=== PATIENT | male | born 1945 | race African-American/Black ===

== ENCOUNTER 2017-03-08 21:34 | Inpatient (IN) | payer MEDICARE, OTHER ==
[~2017-03-08] VITALS: Ht 180.3 cm; Wt 61.7 kg
[~2017-03-08 21:34] MED LIST: ASPIRIN81 MG ORAL; BACITRACIN ZIN1 EACH TOPIC; KEFLEX500 MG ORAL; SYMBICORT 80-10.2 G1 IH
[2017-03-08] MEDS ORDERED: Nitroglycerin Subl 0.4mg tab (Bottle Of 25) SL ONE (21:36)
[2017-03-08] MEDS ORDERED: Albuterol ud Inhalation HHN ONE (21:45)
[2017-03-08] MEDS ORDERED: Ipratropium 0.02% Inh Soln 2.5ml UD HHN ONE (21:45)
[2017-03-08] MEDS: Nitroglycerin Subl 0.4mg tab (Bottle Of 25) SL PRN ×2 (21:54→22:00)
[2017-03-08 21:55] VITALS: BP 209/108
[2017-03-08 22:00] VITALS: BP 108/56
[2017-03-08 22:30] VITALS: BP 92/52
[2017-03-08 22:56] LABS: BASOPHILS % (AUTO) 0.8 % (0.0-2.0); EOSINOPHILS % (AUTO) 1.2 % (0.0-3.0); LYMPHOCYTES % (AUTO) 48.5 % (20.0-45.0); MEAN CORPUSCULAR HEMOGLOBIN 39.6 PG (27.0-31.0); MEAN CORPUSCULAR HGB CONC 36.4 G/DL (32.0-36.0); MEAN CORPUSCULAR VOLUME 109 FL (80-99); MONOCYTES % (AUTO) 6.5 % (1.0-10.0); NEUTROPHILS % (AUTO) 42.9 % (45.0-75.0); PLATELET COUNT 142 K/UL (150-450); RED BLOOD COUNT 3.45 M/UL (4.70-6.10); RED CELL DISTRIBUTION WIDTH 11.4 % (11.6-14.8)
[2017-03-08 23:02] LABS: TROPONIN I < 0.30 ng/mL (<=0.30)
[2017-03-08 23:03] LABS: ALANINE AMINOTRANSFERASE 44 U/L (3-41); ALBUMIN/GLOBULIN RATIO 1.3 (1.0-2.7); ANION GAP 22 (5-15); ASPARTATE AMINO TRANSFERASE 110 U/L (5-40); CALCIUM 8.6 mg/dL (8.6-10.2); CARBON DIOXIDE 19 mEQ/L (20-30); CHLORIDE 102 mEQ/L (98-107); CREATININE 1.6 mg/dL (0.7-1.2); HEMOLYSIS 52; POTASSIUM 4.2 mEQ/L (3.4-4.9); SODIUM 143 mEQ/L (135-145); TOTAL PROTEIN 7.4 g/dL (6.6-8.7)
[2017-03-08 23:09] LABS: REFLEX LACTIC ACID YES OR NO YES
[2017-03-08 23:30] VITALS: BP 142/73
[2017-03-08] MEDS ORDERED: Morphine Sulfate 2mg/ml Inj IVP PRN (23:45)
[2017-03-08] MEDS ORDERED: Promethazine/Codeine 5ml UD ORAL PRN (23:45)
[2017-03-08] MEDS ORDERED: Ketorolac 30mg Inj IV PRN (23:45)
[2017-03-08] MEDS ORDERED: LORazepam Inj 2mg/ml 1ml IV PRN (23:45)
[2017-03-08] MEDS ORDERED: Nitroglycerin Subl 0.4mg tab (Bottle Of 25) SL PRN (23:45)
[2017-03-08] MEDS ORDERED: DuoNeb 0.5-3(2.5)mg/3ml neb HHN PRN (23:45)
[2017-03-09] VITALS (13 sets, daily range): BP systolic 127–171; BP diastolic 63–93
[2017-03-09] MEDS: Solu-MEDROL 125mg Inj IV SCH ×4 (00:20→17:28)
[2017-03-09] MEDS ORDERED: vit d2 PO (00:29)
[2017-03-09] MEDS ORDERED: NORVASC5 MG ORAL (00:29)
[2017-03-09 02:35] LABS: APPEARANCE,URINE CLEAR; KETONES,URINE NEGATIVE (NEGATIVE); LEUKOCYTE ESTERASE ,URINE NEGATIVE (NEGATIVE); NITRITE,URINE NEGATIVE (NEGATIVE); PH,URINE 5 (4.5-8.0); PROTEIN,URINE 3+ (NEGATIVE); UROBILINOGEN,URINE NORMAL MG/DL (0.0-1.0)
[2017-03-09] MEDS ORDERED: Unasyn 3gm Inj ONE (02:43)
[2017-03-09] MEDS ORDERED: Ampicillin/Sulbactam Sod 3 GM in NS 110 ML IVPB SCH (02:45)
[2017-03-09 02:48] LABS: CALCIUM OXALATE CRYSTALS,UR FEW /LPF; HYALINE CASTS, URINE 0-2 /LPF; SQUAMOUS EPITHELIAL CELL,UR FEW /LPF (NONE/OCC); WBC,URINE 0 /HPF (0 - 0)
[2017-03-09 05:56] LABS: MEAN CORPUSCULAR HEMOGLOBIN 35.9 PG (27.0-31.0); MEAN CORPUSCULAR HGB CONC 33.7 G/DL (32.0-36.0); MEAN CORPUSCULAR VOLUME 107 FL (80-99); MEAN PLATELET VOLUME 7.4 FL (6.5-10.1); PLATELET COUNT 130 K/UL (150-450); RED BLOOD COUNT 3.58 M/UL (4.70-6.10); RED CELL DISTRIBUTION WIDTH 11.3 % (11.6-14.8); WHITE BLOOD COUNT 8.4 K/UL (4.8-10.8)
[2017-03-09] MEDS ORDERED: Piperacillin/Tazobactam 2.25 GM in D5W 55 ML IV SCH (06:00)
[2017-03-09 06:08] LABS: ALANINE AMINOTRANSFERASE 39 U/L (3-41); ALBUMIN/GLOBULIN RATIO 1.4 (1.0-2.7); ANION GAP 20 (5-15); ASPARTATE AMINO TRANSFERASE 70 U/L (5-40); CARBON DIOXIDE 20 mEQ/L (20-30); CHLORIDE 102 mEQ/L (98-107); CREATININE 1.7 mg/dL (0.7-1.2); HEMOLYSIS 4; MAGNESIUM 1.4 mg/dL (1.7-2.5); PHOSPHORUS 2.8 mg/dL (2.5-4.8); POTASSIUM 3.8 mEQ/L (3.4-4.9); SODIUM 142 mEQ/L (135-145); TOTAL PROTEIN 7.2 g/dL (6.6-8.7)
--- NOTE | 2017-03-09 06:56 | Emergency Room Report ---
History of Present Illness General Chief Complaint: Dyspnea/Respdistress Source: Patient, EMS Present Illness HPI The patient is 71-year-old male who presented after having increased difficulty breathing. Patient gradual onset of symptoms. The patient had prior history of asthma. He was noted to have severe difficulty breathing by EMS. Patient was noted to be markedly diaphoretic. He was given breathing treatments prior to arrival. He was noted be markedly hypertensive with systolic blood pressure greater than 200. Patient had history of hypertension for which was taking Norvasc.He had prior pacemaker placement. Allergies: Coded Allergies: No Known Allergies (Unverified , 08/25/16) Patient History Past Medical History: see triage record, HTN, asthma Reviewed Nursing Documentation: PMH: Agreed, PSxH: Agreed Nursing Documentation-PMH Hx Hypertension: Yes Hx Pacemaker: Yes Hx Asthma: Yes Physical Exam Vital Signs Date Time Temp Pulse Resp B/P Pulse Ox O2 Delivery O2 Flow Rate FiO2 03/08/17 21:41 98.8 119 28 209/108 100 T-piece 03/08/17 21:50 50 03/09/17 04:00 3.0 Sp02 EP Interpretation: reviewed, normal General Appearance: severe distress, thin Head: atraumatic ENT: normal ENT inspection, normal voice Neck: normal inspection, full range of motion, supple, no bony tend Respiratory: normal inspection, no respiratory distress, no retraction, wheezing Cardiovascular #1: no edema, tachycardia Gastrointestinal: normal inspection, normal bowel sounds, non tender, soft, no guarding, no hernia Genitourinary: no CVA tenderness Musculoskeletal: normal inspection, back normal, normal range of motion Neurologic: normal inspection, alert, oriented x3, responsive, 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 Total critical care time excluding procedures approximately 45 minutes. Medical Decision Making Diagnostic Impression: Primary Impression: Respiratory distress Additional Impressions: Uncontrolled hypertension Pacemaker COPD exacerbation ER Course A presented for shortness of breath. Differential included but was not limited to anemia, pneumonia, pneumothorax, myocardial infarction, pericardial effusion , congestive heart failure, acidosis. Because of complexity of patient's case laboratory testing and imaging studies were ordered. Patient started on BiPAP. He is noted markedly hypertensive and was given antihypertensive medications intravenously. Labs Test 03/08/17 21:50 03/09/17 01:30 03/09/17 04:55 Lactic Acid Level 3.00 mmol/L (0.66-2.22) Total Creatine Kinase 193 U/L (38-174) Creatine Kinase MB 3.0 ng/mL (< 6.7) Creatine Kinase MB Relative Index 1.5 Troponin I < 0.30 ng/mL (<=0.30) Pro-B-Type Natriuretic Peptide 698 pg/mL (0-125) Urine Color Pale yellow Urine Appearance Clear Urine pH 5 (4.5-8.0) Urine Specific Dennis 1.020 (1.005-1.035) Urine Protein 3+ (NEGATIVE) Urine Glucose (UA) Negative (NEGATIVE) Urine Ketones Negative (NEGATIVE) Urine Occult Blood 3+ (NEGATIVE) Urine Nitrite Negative (NEGATIVE) Urine Bilirubin Negative (NEGATIVE) Urine Urobilinogen Normal MG/DL (0.0-1.0) Urine Leukocyte Esterase Negative (NEGATIVE) Urine RBC 5-10 /HPF (0 - 0) Urine WBC 0 /HPF (0 - 0) Urine Squamous Epithelial Cells Few /LPF (NONE/OCC) Urine Calcium Oxalate Crystals Few /LPF (NONE) Urine Bacteria None /HPF (NONE) Urine Hyaline Casts 0-2 /LPF (NONE) Urine Opiates Screen Negative (NEGATIVE) Urine Barbiturates Screen Negative (NEGATIVE) Phencyclidine (PCP) Screen Negative (NEGATIVE) Urine Amphetamines Screen Negative (NEGATIVE) Urine Benzodiazepines Screen Negative (NEGATIVE) Urine Cocaine Screen Negative (NEGATIVE) Urine Marijuana (THC) Screen Negative (NEGATIVE) White Blood Count 8.4 K/UL (4.8-10.8) Red Blood Count 3.58 M/UL (4.70-6.10) Hemoglobin 12.9 G/DL (14.2-18.0) Hematocrit 38.2 % (42.0-52.0) Mean Corpuscular Volume 107 FL (80-99) Mean Corpuscular Hemoglobin 35.9 PG (27.0-31.0) Mean Corpuscular Hemoglobin Concent 33.7 G/DL (32.0-36.0) Red Cell Distribution Width 11.3 % (11.6-14.8) Platelet Count 130 K/UL (150-450) Mean Platelet Volume 7.4 FL (6.5-10.1) Neutrophils (%) (Auto) % (45.0-75.0) Lymphocytes (%) (Auto) % (20.0-45.0) Monocytes (%) (Auto) % (1.0-10.0) Eosinophils (%) (Auto) % (0.0-3.0) Basophils (%) (Auto) % (0.0-2.0) Sodium Level 142 mEQ/L (135-145) Potassium Level 3.8 mEQ/L (3.4-4.9) Chloride Level 102 mEQ/L (98-107) Carbon Dioxide Level 20 mEQ/L (20-30) Anion Gap 20 (5-15) Blood Urea Nitrogen 14 mg/dL (7-23) Creatinine 1.7 mg/dL (0.7-1.2) Estimat Glomerular Filtration Rate mL/min (>60) Glucose Level 186 mg/dL (74-106) Calcium Level 9.0 mg/dL (8.6-10.2) Phosphorus Level 2.8 mg/dL (2.5-4.8) Magnesium Level 1.4 mg/dL (1.7-2.5) Total Bilirubin 0.9 mg/dL (0.0-1.2) Aspartate Amino Transf (AST/SGOT) 70 U/L (5-40) Alanine Aminotransferase (ALT/SGPT) 39 U/L (3-41) Alkaline Phosphatase 65 U/L (40-129) Total Protein 7.2 g/dL (6.6-8.7) Albumin 4.2 g/dL (3.5-5.2) Globulin 3.0 g/dL Albumin/Globulin Ratio 1.4 (1.0-2.7) Chest X-Ray Diagnostic Results EP Interpretation: Yes Findings: no effusion, no pneumothorax Number of Views: 1 Last Vital Signs Date Time Temp Pulse Resp B/P Pulse Ox O2 Delivery O2 Flow Rate FiO2 03/09/17 06:30 96 23 156/91 100 Nasal Cannula 3.0 03/09/17 04:30 98.4 03/09/17 03:30 50 Status: unchanged Disposition: ADMITTED INPATIENT Condition: Serious Referrals: NON PHYSICIAN (PCP) Rosendo España Mar 09, 2017 06:56
--- NOTE | 2017-03-09 10:25 | History and Physical ---
History of Present Illness General Date patient seen: Mar 09, 2017 Time patient seen: 09:30 Reason for Hospitalization: Dyspnea/Respdistress Present Illness HPI 71-year-old male with PMH of asthma/COPD, HTN, pacemaker ( placed for heart block), presented after having increased difficulty breathing with gradual onset of symptoms. The patient had prior history of asthma. Compliant with inhalers at home ( Symbicort) No recent asthma exacerbation He was noted to have severe difficulty breathing by EMS. Patient also was noted to be markedly diaphoretic. He was given breathing treatments prior to arrival. He was noted be markedly hypertensive with systolic blood pressure greater than 200. Patient had history of hypertension for which he was taking Norvasc. 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 workup in ED revealed no leucocytosis, stable HH troponin negative, ECG no ischemic changes pro BNP -698 urine tox screen negative elevated lactic acid UA negative CXR no PNT, no effusion, elevated LFT Mg-1.4 BUN- 14 and creat -1.7 patient was placed on BiPAP anti HTN administered and patient was transferred to [facility] for further management Allergies: Coded Allergies: No Known Allergies (Unverified , 08/25/16) Medication History Scheduled Amlodipine Besylate (Norvasc), 5 MG ORAL TWICE A DAY, (Reported) Aspirin* (Aspirin*), 81 MG ORAL DAILY, (Reported) Bacitracin Zinc* (Bacitracin Zinc*), 1 APPLIC TOPIC THREE TIMES A DAY Budesonide/Formoterol Fumarate (Symbicort 80-4.5 Mcg Inhaler), 2 PUFF IH BID, ( Reported) Cephalexin* (Keflex*), 500 MG ORAL Q6H [vit d2], 50,000 UNIT PO QWEEK, (Reported) Patient History History Provided By: Patient Healthcare decision maker Resuscitation status Advanced Directive on File Review of Systems Constitutional: Reports: weakness - and diaphoresis prior to coming to ED Eye: Reports: other - glasses ENT: Reports: no symptoms Respiratory: Reports: see HPI Cardiovascular: Reports: other - hx of pacemaker 2 to heart block Gastrointestinal: Reports: no symptoms Genitourinary: Reports: no symptoms Musculoskeletal: Reports: no symptoms Skin: Reports: no symptoms Psychiatric: Reports: no symptoms Neurological: Reports: no symptoms Endocrine: Reports: no symptoms Hematologic/Lymphatic: Reports: no symptoms Physical Exam General Appearance: no apparent distress, alert, thin - AA male in NAD A/A/O x 4 Lines, tubes and drains: peripheral HEENT: normocephalic, atraumatic, anicteric, mucous membranes moist Neck: non-tender, supple Respiratory/Chest: no respiratory distress, no accessory muscle use, decreased breath sounds Cardiovascular/Chest: normal rate, regular rhythm Abdomen: normal bowel sounds, non tender, soft Extremities: normal range of motion, non-tender, no calf tenderness, normal capillary refill Neurologic: house designer II-XII grossly normal, no motor/sensory deficits, alert, oriented x 3, responsive, normal mood/affect Musculoskeletal: normal muscle bulk Last 24 Hour Vital Signs Date Time Temp Pulse Resp B/P Pulse Ox O2 Delivery O2 Flow Rate FiO2 03/09/17 09:30 98.4 96 17 170/84 98 Nasal Cannula 3.0 50 03/09/17 09:30 97.9 97 18 171/93 98 Room Air 03/09/17 07:30 96 17 170/84 98 Nasal Cannula 3.0 03/09/17 06:30 96 23 156/91 100 Nasal Cannula 3.0 03/09/17 05:30 85 27 138/71 99 Nasal Cannula 3.0 03/09/17 04:30 98.4 93 18 145/82 97 Nasal Cannula 3.0 03/09/17 04:00 3.0 03/09/17 03:30 100 16 165/79 100 Bi-pap 50 03/09/17 02:30 100 15 129/63 99 Bi-pap 50 03/09/17 01:30 97 17 138/71 100 Bi-pap 50 03/09/17 01:20 107 16 99 Facial 50 03/09/17 00:30 98.4 100 15 133/82 100 Bi-pap 50 03/09/17 00:00 50 03/08/17 23:30 111 14 142/73 100 Bi-pap 50 03/08/17 22:50 119 16 99 Bi-pap 50 03/08/17 22:47 117 17 99 Facial 50 03/08/17 22:43 116 16 Bi-pap 50 03/08/17 22:43 50 03/08/17 22:43 116 17 99 Bi-pap 50 03/08/17 22:30 123 23 92/52 100 Bi-pap 50 03/08/17 22:00 128 24 108/56 100 Bi-pap 50 03/08/17 22:00 209/108 03/08/17 22:00 209/108 03/08/17 21:57 50 03/08/17 21:55 98.8 134 28 209/108 100 Bi-pap 50 03/08/17 21:55 119 28 T-piece 03/08/17 21:54 209/108 03/08/17 21:50 121 21 98 Facial 50 03/08/17 21:50 121 21 Bi-pap 50 03/08/17 21:41 98.8 119 28 209/108 100 T-piece Intake and Output 03/08/17 03/09/17 19:00 07:00 Intake Total 110 ml Balance 110 ml Intake IV Total 110 ml # Voids 1 Laboratory Tests Test 03/08/17 21:50 03/09/17 01:30 03/09/17 04:55 White Blood Count 9.0 K/UL (4.8-10.8) 8.4 K/UL (4.8-10.8) Red Blood Count 3.45 M/UL (4.70-6.10) L 3.58 M/UL (4.70-6.10) L Hemoglobin 13.7 G/DL (14.2-18.0) L 12.9 G/DL (14.2-18.0) L Hematocrit 37.6 % (42.0-52.0) L 38.2 % (42.0-52.0) L Mean Corpuscular Volume 109 FL (80-99) H 107 FL (80-99) H Mean Corpuscular Hemoglobin 39.6 PG (27.0-31.0) H 35.9 PG (27.0-31.0) H Mean Corpuscular Hemoglobin Concent 36.4 G/DL (32.0-36.0) H 33.7 G/DL (32.0-36.0) Red Cell Distribution Width 11.4 % (11.6-14.8) L 11.3 % (11.6-14.8) L Platelet Count 142 K/UL (150-450) L 130 K/UL (150-450) L Mean Platelet Volume 8.0 FL (6.5-10.1) 7.4 FL (6.5-10.1) Neutrophils (%) (Auto) 42.9 % (45.0-75.0) L % (45.0-75.0) Lymphocytes (%) (Auto) 48.5 % (20.0-45.0) H % (20.0-45.0) Monocytes (%) (Auto) 6.5 % (1.0-10.0) % (1.0-10.0) Eosinophils (%) (Auto) 1.2 % (0.0-3.0) % (0.0-3.0) Basophils (%) (Auto) 0.8 % (0.0-2.0) % (0.0-2.0) Sodium Level 143 mEQ/L (135-145) 142 mEQ/L (135-145) Potassium Level 4.2 mEQ/L (3.4-4.9) 3.8 mEQ/L (3.4-4.9) Chloride Level 102 mEQ/L (98-107) 102 mEQ/L (98-107) Carbon Dioxide Level 19 mEQ/L (20-30) L 20 mEQ/L (20-30) Anion Gap 22 (5-15) H 20 (5-15) H Blood Urea Nitrogen 13 mg/dL (7-23) 14 mg/dL (7-23) Creatinine 1.6 mg/dL (0.7-1.2) H 1.7 mg/dL (0.7-1.2) H Estimat Glomerular Filtration Rate mL/min (>60) mL/min (>60) Glucose Level 170 mg/dL (74-106) H 186 mg/dL (74-106) H Lactic Acid Level 3.00 mmol/L (0.66-2.22) H Calcium Level 8.6 mg/dL (8.6-10.2) 9.0 mg/dL (8.6-10.2) Total Bilirubin 0.9 mg/dL (0.0-1.2) 0.9 mg/dL (0.0-1.2) Aspartate Amino Transf (AST/SGOT) 110 U/L (5-40) H 70 U/L (5-40) H Alanine Aminotransferase (ALT/SGPT) 44 U/L (3-41) H 39 U/L (3-41) Alkaline Phosphatase 69 U/L (40-129) 65 U/L (40-129) Total Creatine Kinase 193 U/L (38-174) H Creatine Kinase MB 3.0 ng/mL (< 6.7) Creatine Kinase MB Relative Index 1.5 Troponin I < 0.30 ng/mL (<=0.30) Pro-B-Type Natriuretic Peptide 698 pg/mL (0-125) H Total Protein 7.4 g/dL (6.6-8.7) 7.2 g/dL (6.6-8.7) Albumin 4.2 g/dL (3.5-5.2) 4.2 g/dL (3.5-5.2) Globulin 3.2 g/dL 3.0 g/dL Albumin/Globulin Ratio 1.3 (1.0-2.7) 1.4 (1.0-2.7) Urine Color Pale yellow Urine Appearance Clear Urine pH 5 (4.5-8.0) Urine Specific [place] 1.020 (1.005-1.035) Urine Protein 3+ (NEGATIVE) H Urine Glucose (UA) Negative (NEGATIVE) Urine Ketones Negative (NEGATIVE) Urine Occult Blood 3+ (NEGATIVE) H Urine Nitrite Negative (NEGATIVE) Urine Bilirubin Negative (NEGATIVE) Urine Urobilinogen Normal MG/DL (0.0-1.0) Urine Leukocyte Esterase Negative (NEGATIVE) Urine RBC 5-10 /HPF (0 - 0) H Urine WBC 0 /HPF (0 - 0) Urine Squamous Epithelial Cells Few /LPF (NONE/OCC) Urine Calcium Oxalate Crystals Few /LPF (NONE) Urine Bacteria None /HPF (NONE) Urine Hyaline Casts 0-2 /LPF (NONE) H Urine Opiates Screen Negative (NEGATIVE) Urine Barbiturates Screen Negative (NEGATIVE) Phencyclidine (PCP) Screen Negative (NEGATIVE) Urine Amphetamines Screen Negative (NEGATIVE) Urine Benzodiazepines Screen Negative (NEGATIVE) Urine Cocaine Screen Negative (NEGATIVE) Urine Marijuana (THC) Screen Negative (NEGATIVE) Phosphorus Level 2.8 mg/dL (2.5-4.8) Magnesium Level 1.4 mg/dL (1.7-2.5) L Height (Feet): 5 Height (Inches): 11.00 Weight (Pounds): 140 Medications Current Medications Medications (Trade) Dose Ordered Sig/Howard Route PRN Reason Start Time Stop Time Status Last Admin Dose Admin Albuterol/ Ipratropium (DuoNeb 0.5-3(2.5)mg/3ml) 3 ml Q4H PRN HHN dyspnea 03/08/17 23:45 03/13/17 23:44 Dextrose STAT PRN IV Hypoglycemia 03/08/17 23:45 04/07/17 23:44 Heparin Sodium (Porcine) (Heparin 5000 units/ml) 5,000 units EVERY 12 HOURS SUBQ 03/09/17 09:00 04/08/17 08:59 Ketorolac Tromethamine (Toradol 30mg) 15 mg Q6H PRN IV moderate pain 4-6 03/08/17 23:45 03/13/17 23:44 Lorazepam (Ativan 2mg/ml 1ml) 0.5 mg Q4H PRN IV For Anxiety 03/08/17 23:45 03/15/17 23:44 Methylprednisolone Sodium Succinate (Solu-MEDROL) 60 mg EVERY 6 HOURS IV 03/09/17 00:00 04/08/17 00:00 03/09/17 06:18 Morphine Sulfate (Morphine Sulfate) 2 mg Q4H PRN IVP severe pain 7-10 03/08/17 23:45 03/15/17 23:44 Nitroglycerin (Ntg) 0.4 mg Q5M X 3 DOSES PRN SL Prn Chest Pain 03/08/17 23:45 04/07/17 23:44 Ondansetron HCl (Zofran) 4 mg Q6H PRN IVP Nausea & Vomiting 03/08/17 23:45 04/07/17 23:44 Piperacillin Sod/ Tazobactam Sod/ Dextrose (Zosyn/D5W) 110 ml @ 27.5 mls/hr Q8H IVPB 03/09/17 12:00 03/16/17 11:59 Promethazine HCl/ Codeine (Phenergan with Codeine) 5 ml Q6H PRN ORAL cough 03/08/17 23:45 04/07/17 23:44 Temazepam (Restoril) 15 mg HSPRN PRN ORAL Insomnia 03/08/17 23:45 03/15/17 23:44 Theophylline (Riaz-Dur) 100 mg EVERY 12 HOURS ORAL 03/09/17 09:00 04/08/17 08:59 Assessment/Plan Assessment/Plan ASSESSMENT acute hypoxemic respiratory failure requiring BiPAP COPD/asthma exacerbation lactic acidosis hypertensive urgency pacemaker transaminitis hypomagnesemia acute kidney injury vs chronic renal insufficiency PLAN OF CARE [facility] BiPAP support titarte setting to keep FiO2 above 92% ABG in am wean as tolerated Supplemental O2 HHN IV Steroids and taper Empiric abx Sputum cx Continue Theophylline Antitussive prn fup with CXR BP management with CCB and Clonidine pr, optimize further as needed ECHO Venous Duplex BLE replace Mg, check Mg in am monitor LFT hepatitis panel abdominal US monitor renal parameters, wean from steroids as soon as possible renal US DVT GI prophylaxis bowel regimen case discussed and evaluated by supervising physician Reji Kirk),Tete DUVALL Mar 09, 2017 10:25
--- NOTE | 2017-03-09 10:34 | Diagnostic Imaging Report ---
Indication: Dyspnea Comparison: 03/08/17 A single view chest radiograph was obtained. Findings: Streaky linear densities noted within the lungs bilaterally in the upper lobes, mild in degree. The findings are probably chronic, but we do not have any older reference films. Please correlate clinically. Findings are unchanged from the prior day. Pacemaker again noted. Heart size is stable. Impression: Doubtful for acute findings. No change from the prior day
[2017-03-09] MEDS: Theophylline ER 100mg ORAL SCH ×2 (10:42→21:09)
[2017-03-09] MEDS: Heparin 5000 units/ml inj SUBQ SCH ×2 (10:44→21:11)
--- NOTE | 2017-03-09 11:07 | Diagnostic Imaging Report ---
Indication: Dyspnea Comparison: None A single view chest radiograph was obtained. Findings: Cardiomediastinal appearance is within normal limits for age. Pulmonary vascularity is appropriate. The diaphragmatic contour is smooth and costophrenic angles are sharp. No pleural effusions are identified. The bones are unremarkable. Impression: No acute findings
[2017-03-09] MEDS ORDERED: Zosyn 3.375gm q8h **Extended infusion IVPB SCH ×4 (12:00→13:00)
[2017-03-09 12:55] LABS: ABG ALLEN TEST POSITIVE; ABG BASE EXCESS -0.2; ABG PCO2 32.3 mmHg (35.0-45.0)
--- NOTE | 2017-03-09 13:47 | Consultation ---
Consult Note Consult Note ID Dic# [id number] MARSHALL SONI M.D. Mar 09, 2017 13:47
[2017-03-09] MEDS ORDERED: Azithromycin 250mg tab ORAL ONE (14:00)
--- NOTE | 2017-03-09 22:15 | Consultation ---
DATE OF CONSULTATION: 03/09/2017 INFECTIOUS DISEASE CONSULTATION: CONSULTING PHYSICIAN: Steven Kelley M.D. REFERRING PHYSICIAN: Mehran Vasquez M.D. REASON FOR CONSULTATION: Evaluation of the patient for chronic obstructive pulmonary disease exacerbation, possible pneumonia, and antibiotic management. HISTORY OF PRESENT ILLNESS: The patient is 71-year-old male with multiple medical problems, who has been admitted to this medical center due to shortness of breath. At the time of my evaluation, the patient was found to have no leukocytosis or fever. Infectious Disease consultation has been requested for possible need for antibiotics treatment. PAST MEDICAL HISTORY: 1. Pacemaker placement. 2. Hypertension. 3. History of asthma. 4. Ex-smoker. MEDICATIONS: IV Zosyn and Solu-Medrol. SOCIAL HISTORY: As mentioned above. Ex-smoker. No alcohol or drug abuse. FAMILY HISTORY: Noncontributory. REVIEW OF SYSTEMS: HEENT: No recent change in vision or hearing. Pulmonary: As mentioned above. Cardiovascular: No chest pain or palpitation. Gastrointestinal/Abdomen: No nausea or vomiting. Genitourinary: No dysuria. Musculoskeletal: Pain in extremities. PHYSICAL EXAMINATION: VITAL SIGNS: Temperature is 98.4 degrees, blood pressure 168/89, pulse 82, and respiratory rate 18. HEENT: Mild pale conjunctivae. No icterus. NECK: No lymphadenopathy. CHEST: Mild bibasilar wheezes. HEART: S1 and S2. ABDOMEN: Soft and nontender. EXTREMITIES: No cyanosis. NEUROLOGIC: Awake and alert. LABORATORY DATA: WBC is 8.4, hemoglobin 12.9, and platelet 130,000. UA is unremarkable. BUN is 14 and creatinine 1.7. AST 70, ALT 39, and alkaline phosphatase 165. DIAGNOSTIC DATA: Chest x-ray, no evidence of acute infiltrate. ASSESSMENT: The patient is a 71-year-old male with multiple medical problems and also the patient has: 1. Chronic obstructive pulmonary disease/asthma exacerbation. 2. Afebrile. 3. No leukocytosis. PLAN: 1. We will change the antibiotics . 2. Monitor CBC. 3. Monitor BMP. 4. Chest x-ray. 5. Based on the patient's clinical course and laboratories, we will do further recommendations. 6. The patient does not have significant sputum to send for culture. Steven Kelley M.D. DR: Sourav JOB#: [id number] CC:
[2017-03-10] VITALS: BP 117/71
[2017-03-10] MEDS: Solu-MEDROL 125mg Inj IV SCH ×3 (00:04→12:11)
[2017-03-10 04:00] VITALS: BP 144/80
[2017-03-10 05:56] LABS: MEAN CORPUSCULAR HEMOGLOBIN 37.5 PG (27.0-31.0); MEAN CORPUSCULAR HGB CONC 35.1 G/DL (32.0-36.0); MEAN CORPUSCULAR VOLUME 107 FL (80-99); MEAN PLATELET VOLUME 8.8 FL (6.5-10.1); PLATELET COUNT 125 K/UL (150-450); RED BLOOD COUNT 3.39 M/UL (4.70-6.10); RED CELL DISTRIBUTION WIDTH 11.1 % (11.6-14.8); WHITE BLOOD COUNT 12.5 K/UL (4.8-10.8)
[2017-03-10 06:53] LABS: ANION GAP 16 (5-15); CALCIUM 9.3 mg/dL (8.6-10.2); CARBON DIOXIDE 24 mEQ/L (20-30); CHLORIDE 98 mEQ/L (98-107); CREATININE 1.8 mg/dL (0.7-1.2); HEMOLYSIS 6; POTASSIUM 4.4 mEQ/L (3.4-4.9); SODIUM 138 mEQ/L (135-145)
[2017-03-10 08:00] VITALS: BP 156/93
--- NOTE | 2017-03-10 08:18 | Infectious Diseases Prog Note ---
Assessment/Plan Assessment/Plan A: COPD exacerbation HPN Acute renal failure, CKD Tachycardia Lactic acidosis P; Continue Zithromax Subjective ROS Limited/Unobtainable: No Constitutional: Reports: no symptoms Respiratory: Reports: no symptoms Cardiovascular: Reports: no symptoms Gastrointestinal/Abdominal: Reports: no symptoms Genitourinary: Reports: no symptoms Neurologic: Reports: no symptoms Allergies: Coded Allergies: No Known Allergies (Unverified , 08/25/16) Objective Vital Signs Last 24 Hour Vital Signs Date Time Temp Pulse Resp B/P Pulse Ox O2 Delivery O2 Flow Rate FiO2 03/10/17 04:00 97.5 79 20 144/80 99 Room Air 03/10/17 04:00 67 03/10/17 00:00 60 03/10/17 00:00 96.8 62 20 117/71 99 Room Air 03/09/17 20:00 97 03/09/17 20:00 98.2 89 20 159/91 98 Room Air 03/09/17 17:28 82 159/90 03/09/17 16:00 98.1 78 18 127/74 98 Room Air 03/09/17 15:44 71 03/09/17 14:32 75 137/78 03/09/17 12:02 168/89 03/09/17 12:00 98.4 82 20 168/89 98 Room Air 03/09/17 12:00 82 03/09/17 10:42 96 171/93 03/09/17 09:41 96 03/09/17 09:30 98.4 96 17 170/84 98 Nasal Cannula 3.0 50 03/09/17 09:30 97.9 97 18 171/93 98 Room Air Height (Feet): 5 Height (Inches): 11.00 Weight (Pounds): 136 General Appearance: no acute distress HEENT: mucous membranes moist Respiratory/Chest: decreased breath sounds Cardiovascular: tachycardia Abdomen: soft, non tender Extremities: no edema Neurologic/Psychiatric: alert, oriented x 3, responsive Microbiology Date/Time Source Procedure Growth Status 03/08/17 21:55 Blood Blood Culture - Preliminary NO GROWTH AFTER 24 HOURS Resulted 03/08/17 21:30 Blood Blood Culture - Preliminary NO GROWTH AFTER 24 HOURS Resulted 03/09/17 04:50 Sputum Not Specified Gram Stain Pending Resulted 03/09/17 04:50 Sputum Not Specified Sputum Culture - Preliminary NORMAL UPPER RESPIRATORY CORY AT 24 ... Resulted Laboratory Tests Test 03/09/17 12:50 03/10/17 03:40 Arterial Blood pH 7.466 (7.350-7.450) Arterial Blood Partial Pressure CO2 32.3 mmHg (35.0-45.0) L Arterial Blood Partial Pressure O2 94.1 mmHg (75.0-100.0) Arterial Blood HCO3 22.8 mmol/L (22.0-26.0) Arterial Blood Oxygen Saturation 97.0 % (92.0-98.0) Arterial Blood Base Excess -0.2 Yovani Test Positive White Blood Count 12.5 K/UL (4.8-10.8) H Red Blood Count 3.39 M/UL (4.70-6.10) L Hemoglobin 12.7 G/DL (14.2-18.0) L Hematocrit 36.2 % (42.0-52.0) L Mean Corpuscular Volume 107 FL (80-99) H Mean Corpuscular Hemoglobin 37.5 PG (27.0-31.0) H Mean Corpuscular Hemoglobin Concent 35.1 G/DL (32.0-36.0) Red Cell Distribution Width 11.1 % (11.6-14.8) L Platelet Count 125 K/UL (150-450) L Mean Platelet Volume 8.8 FL (6.5-10.1) Neutrophils (%) (Auto) % (45.0-75.0) Lymphocytes (%) (Auto) % (20.0-45.0) Monocytes (%) (Auto) % (1.0-10.0) Eosinophils (%) (Auto) % (0.0-3.0) Basophils (%) (Auto) % (0.0-2.0) Neutrophils % (Manual) Pending Lymphocytes % (Manual) Pending Platelet Estimate Pending Platelet Morphology Pending Sodium Level 138 mEQ/L (135-145) Potassium Level 4.4 mEQ/L (3.4-4.9) Chloride Level 98 mEQ/L (98-107) Carbon Dioxide Level 24 mEQ/L (20-30) Anion Gap 16 (5-15) H Blood Urea Nitrogen 19 mg/dL (7-23) Creatinine 1.8 mg/dL (0.7-1.2) H Estimat Glomerular Filtration Rate mL/min (>60) Glucose Level 168 mg/dL (74-106) H Calcium Level 9.3 mg/dL (8.6-10.2) Magnesium Level 2.2 mg/dL (1.7-2.5) Hepatitis A IgM Antibody Pending Hepatitis B Surface Antigen Pending Hepatitis B Core IgM Antibody Pending Hepatitis C Antibody Pending Current Medications Medications (Trade) Dose Ordered Sig/Howard Route PRN Reason Start Time Stop Time Status Last Admin Dose Admin Albuterol/ Ipratropium (DuoNeb 0.5-3(2.5)mg/3ml) 3 ml Q4H PRN HHN dyspnea 03/08/17 23:45 03/13/17 23:44 Amlodipine Besylate (Norvasc) 5 mg TWICE A DAY ORAL 03/09/17 10:30 04/08/17 10:29 03/09/17 17:28 Azithromycin (Zithromax) 250 mg DAILY ORAL 03/10/17 09:00 03/17/17 08:59 Clonidine HCl (Catapres) 0.1 mg EVERY 6 HOURS PRN ORAL sbp above 160 03/09/17 11:00 04/08/17 10:59 03/09/17 12:02 Dextrose (Dextrose 50%) STAT PRN IV Hypoglycemia 03/08/17 23:45 04/07/17 23:44 Heparin Sodium (Porcine) (Heparin 5000 units/ml) 5,000 units EVERY 12 HOURS SUBQ 03/09/17 09:00 04/08/17 08:59 03/09/17 21:11 Ketorolac Tromethamine (Toradol 30mg) 15 mg Q6H PRN IV moderate pain 4-6 03/08/17 23:45 03/13/17 23:44 Lorazepam (Ativan 2mg/ml 1ml) 0.5 mg Q4H PRN IV For Anxiety 03/08/17 23:45 03/15/17 23:44 Methylprednisolone Sodium Succinate (Solu-MEDROL) 60 mg EVERY 6 HOURS IV 03/09/17 00:00 04/08/17 00:00 03/10/17 06:05 Morphine Sulfate (Morphine Sulfate) 2 mg Q4H PRN IVP severe pain 7-10 03/08/17 23:45 03/15/17 23:44 Nitroglycerin (Ntg) 0.4 mg Q5M X 3 DOSES PRN SL Prn Chest Pain 03/08/17 23:45 04/07/17 23:44 Ondansetron HCl (Zofran) 4 mg Q6H PRN IVP Nausea & Vomiting 03/08/17 23:45 04/07/17 23:44 Promethazine HCl/ Codeine (Phenergan with Codeine) 5 ml Q6H PRN ORAL cough 03/08/17 23:45 04/07/17 23:44 Temazepam (Restoril) 15 mg HSPRN PRN ORAL Insomnia 03/08/17 23:45 03/15/17 23:44 03/09/17 21:09 Theophylline (Riaz-Dur) 100 mg EVERY 12 HOURS ORAL 03/09/17 09:00 04/08/17 08:59 03/09/17 21:09 JOHN BURCH Mar 10, 2017 08:18
[2017-03-10] MEDS ORDERED: Azithromycin 250mg tab ORAL SCH (09:00)
[2017-03-10 10:01] LABS: BAND NEUTROPHILS % (MANUAL) 3 % (0-8); BASOPHILS % (MANUAL) 0 % (0-2); EOSINOPHILS % (MANUAL) 0 % (0-3); LYMPHOCYTES % (MANUAL) 4 % (20-45); MACROCYTES 1+; NEUTROPHILS % (MANUAL) 91 % (45-75); PLATELET ESTIMATE DECREASED; TOTAL CELLS COUNTED 100
[2017-03-10] MEDS: Theophylline ER 100mg ORAL SCH (10:03)
[2017-03-10] MEDS: Heparin 5000 units/ml inj SUBQ SCH (10:07)
[2017-03-10 11:00] LABS: PLATELET MORPHOLOGY NORMAL
[2017-03-10] MEDS ORDERED: ZITHROMAX250 MG ORAL (11:05)
[2017-03-10] MEDS ORDERED: MEDROL4 MG ORAL (11:05)
[2017-03-10 12:00] VITALS: BP 143/84
--- NOTE | 2017-03-10 12:17 | Pulmonology Progress Note ---
Assessment/Plan Assessment/Plan ASSESSMENT acute hypoxemic respiratory failure requiring BiPAP COPD/asthma exacerbation lactic acidosis hypertensive urgency pacemaker transaminitis hypomagnesemia acute kidney injury vs chronic renal insufficiency PLAN OF CARE CONSTANCE off BiPAP on RA sat stable, no respiratory distress ABG in am Supplemental O2 prn HHN prn IV Steroids , leukocytosis likely reactive 2 to steroid use change to Medrol dose pack upon discharge Empiric abx Sputum cx negative on Theophylline Antitussive prn BP management with CCB and Clonidine pr, optimize further as needed ECHO Venous Duplex BLE Mg stable after replacement monitor LFT hepatitis panel abdominal US results pending monitor renal parameters, renal US results pending DVT GI prophylaxis bowel regimen dc today fup with dr Murillo on Saturday patient was explained that he can request copies of renal and abdominal US and fup if any abnormalities with PMD case discussed and evaluated by supervising physician Subjective Allergies: Coded Allergies: No Known Allergies (Unverified , 08/25/16) Subjective feeling better on RA pulse oximetry stable no chest pain wants to ho home and fup with his pulmo on Saturday Objective Last 24 Hour Vital Signs Date Time Temp Pulse Resp B/P Pulse Ox O2 Delivery O2 Flow Rate FiO2 03/10/17 10:12 92 156/93 03/10/17 08:00 92 03/10/17 08:00 98.1 92 18 156/93 98 Room Air 03/10/17 04:00 97.5 79 20 144/80 99 Room Air 03/10/17 04:00 67 03/10/17 00:00 60 03/10/17 00:00 96.8 62 20 117/71 99 Room Air 03/09/17 20:00 97 03/09/17 20:00 98.2 89 20 159/91 98 Room Air 03/09/17 17:28 82 159/90 03/09/17 16:00 98.1 78 18 127/74 98 Room Air 03/09/17 15:44 71 03/09/17 14:32 75 137/78 Intake and Output 03/09/17 03/10/17 19:00 07:00 Intake Total 410.0 ml Output Total 1 ml 1 ml Balance 409.0 ml -1 ml Intake IV Total 410.0 ml Output Urine Total 1 ml 1 ml Objective General Appearance: no apparent distress, alert, thin AA male in NAD A/A/O x 4 Lines, tubes and drains: peripheral HEENT: normocephalic, atraumatic, anicteric, mucous membranes moist Neck: non-tender, supple Respiratory/Chest: no respiratory distress, no accessory muscle use, decreased breath sounds Cardiovascular/Chest: normal rate, regular rhythm Abdomen: normal bowel sounds, non tender, soft Extremities: normal range of motion, non-tender, no calf tenderness, normal capillary refill Neurologic: photographs curator II-XII grossly normal, no motor/sensory deficits, alert, oriented x 3, responsive, normal mood/affect Musculoskeletal: normal muscle bulk Microbiology Date/Time Source Procedure Growth Status 03/08/17 21:55 Blood Blood Culture - Preliminary NO GROWTH AFTER 24 HOURS Resulted 03/08/17 21:30 Blood Blood Culture - Preliminary NO GROWTH AFTER 24 HOURS Resulted 03/09/17 04:50 Sputum Not Specified Gram Stain - Final Resulted 03/09/17 04:50 Sputum Not Specified Sputum Culture - Preliminary NORMAL UPPER RESPIRATORY CORY AT 24 ... Resulted Laboratory Tests 03/09/17 12:50: Arterial Blood pH 7.466H, Arterial Blood Partial Pressure CO2 32.3L, Arterial Blood Partial Pressure O2 94.1, Arterial Blood HCO3 22.8, Arterial Blood Oxygen Saturation 97.0, Arterial Blood Base Excess -0.2, Yovani Test Positive 03/10/17 03:40: White Blood Count 12.5H, Red Blood Count 3.39L, Hemoglobin 12.7L, Hematocrit 36.2L, Mean Corpuscular Volume 107H, Mean Corpuscular Hemoglobin 37.5H, Mean Corpuscular Hemoglobin Concent 35.1, Red Cell Distribution Width 11.1L, Platelet Count 125L, Mean Platelet Volume 8.8, Neutrophils (%) (Auto) , Lymphocytes (%) (Auto) , Monocytes (%) (Auto) , Eosinophils (%) (Auto) , Basophils (%) (Auto) , Differential Total Cells Counted 100, Neutrophils % ( Manual) 91H, Lymphocytes % (Manual) 4L, Monocytes % (Manual) 2, Eosinophils % ( Manual) 0, Basophils % (Manual) 0, Band Neutrophils 3, Platelet Estimate DecreasedL, Platelet Morphology Normal, Macrocytosis 1+, Sodium Level 138, Potassium Level 4.4, Chloride Level 98, Carbon Dioxide Level 24, Anion Gap 16H, Blood Urea Nitrogen 19, Creatinine 1.8H, Estimat Glomerular Filtration Rate , Glucose Level 168H, Calcium Level 9.3, Magnesium Level 2.2, Hepatitis A IgM Antibody [Pending], Hepatitis B Surface Antigen [Pending], Hepatitis B Core IgM Antibody [Pending], Hepatitis C Antibody [Pending] Current Medications Medications (Trade) Dose Ordered Sig/Howard Route PRN Reason Start Time Stop Time Status Last Admin Dose Admin Albuterol/ Ipratropium (DuoNeb 0.5-3(2.5)mg/3ml) 3 ml Q4H PRN HHN dyspnea 03/08/17 23:45 03/13/17 23:44 Amlodipine Besylate (Norvasc) 5 mg TWICE A DAY ORAL 03/09/17 10:30 04/08/17 10:29 03/10/17 10:12 Azithromycin (Zithromax) 250 mg DAILY ORAL 03/10/17 09:00 03/17/17 08:59 03/10/17 10:04 Clonidine HCl (Catapres) 0.1 mg EVERY 6 HOURS PRN ORAL sbp above 160 03/09/17 11:00 04/08/17 10:59 03/09/17 12:02 Dextrose (Dextrose 50%) STAT PRN IV Hypoglycemia 03/08/17 23:45 04/07/17 23:44 Heparin Sodium (Porcine) (Heparin 5000 units/ml) 5,000 units EVERY 12 HOURS SUBQ 03/09/17 09:00 04/08/17 08:59 03/10/17 10:07 Ketorolac Tromethamine (Toradol 30mg) 15 mg Q6H PRN IV moderate pain 4-6 03/08/17 23:45 03/13/17 23:44 Lorazepam (Ativan 2mg/ml 1ml) 0.5 mg Q4H PRN IV For Anxiety 03/08/17 23:45 03/15/17 23:44 Methylprednisolone Sodium Succinate (Solu-MEDROL) 60 mg EVERY 6 HOURS IV 03/09/17 00:00 04/08/17 00:00 03/10/17 12:11 Morphine Sulfate (Morphine Sulfate) 2 mg Q4H PRN IVP severe pain 7-10 03/08/17 23:45 03/15/17 23:44 Nitroglycerin (Ntg) 0.4 mg Q5M X 3 DOSES PRN SL Prn Chest Pain 03/08/17 23:45 04/07/17 23:44 Ondansetron HCl (Zofran) 4 mg Q6H PRN IVP Nausea & Vomiting 03/08/17 23:45 04/07/17 23:44 Promethazine HCl/ Codeine (Phenergan with Codeine) 5 ml Q6H PRN ORAL cough 03/08/17 23:45 04/07/17 23:44 Temazepam (Restoril) 15 mg HSPRN PRN ORAL Insomnia 03/08/17 23:45 03/15/17 23:44 03/09/17 21:09 Theophylline (Riaz-Dur) 100 mg EVERY 12 HOURS ORAL 03/09/17 09:00 04/08/17 08:59 03/10/17 10:03 Re[facility]St[facility] CenterTete Renteria NP Mar 10, 2017 12:17
--- NOTE | 2017-03-10 12:19 | Discharge Instructions ---
Discharge Instructions Discharge Instructions Follow up with: dr Murillo on Saturday Call MD/Return to Hospital if: chest tightness, wheezing, diff breathing that not resolve withrescue inhal Activity: resume normal activities, as tolerated For Congestive Heart Failure Reminder Report to your physician any weight gain of 5 pounds or more in one week. Reji (RamonTete feliz NP Mar 10, 2017 12:19
--- NOTE | 2017-03-10 12:45 | Diagnostic Imaging Report ---
Indication:Abdominal pain Technique: Grayscale and duplex Doppler imaging of the abdomen performed. Comparison: None Findings: The demonstrated part of the pancreas, gallbladder, aorta and IVC, both kidneys, spleen appear unremarkable. Liver is echogenic. There is no biliary ductal dilatation identified. Doppler evaluation of the main portal vein shows patency. There is no ascites. No hydronephrosis seen. Impression: Fatty liver.
[2017-03-10] MEDS ORDERED: NS 275ml ONE (15:43)
[2017-03-10] MEDS ORDERED: Tubing IV Secondary IV ONE (15:43)
--- NOTE | 2017-03-11 07:03 | Cardiology Report ---
APPROVED REPORT EXAM: Two-dimensional and M-mode echocardiogram with Doppler and color Doppler. INDICATION Left Ventricular Function M-Mode DIMENSIONS IVSd1.6 (0.7-1.1cm)Left Atrium (MM)4.0 (1.6-4.0cm) LVDd4.1 (3.5-5.6cm)Aortic Root2.5 (2.0-3.7cm) PWd1.4 (0.7-1.1cm)Aortic Cusp Exc.1.6 (1.5-2.0cm) LVDs2.6 (2.5-4.0cm) PWs1.8 cm Normal left ventricular chamber size, systolic function and wall motion. Left ventricular ejection fraction estimated to be 55 %. Mild left ventricular hypertrophy. No evidence of pericardial fat or effusion. All other cardiac chamber sizes are within normal limits. Mild focal aortic valve sclerosis with adequate cusp excursion. Mildly thickened mitral valve leaflets with normal excursion. Mild mitral annulus and aortic root calcification. Pulmonic valve not well visualized. Normal tricuspid valve structure. IVC dilated at 1.8 cm with physiologic collapse. A color flow and spectral Doppler study was performed and revealed: No aortic regurgitation. Trace mitral regurgitation. Mitral diastolic velocities suggest reduced left ventricular relaxation (Grade I). Mild tricuspid regurgitation. Tricuspid systolic velocities suggests peak right ventricular systolic pressure of 43 mmHg, consistent with mild pulmonary hypertension. No pulmonic regurgitation present.
--- NOTE | 2017-03-11 08:52 | Diagnostic Imaging Report ---
Indication:Elevated Bun and Creatinine. Technique: Grayscale and duplex Doppler imaging of the kidneys performed. Comparison: None Findings: The size, contour, and echogenicity of both kidneys are within normal limits. Right kidney is 10 CM. Left kidney is 9 CM. There is no hydronephrosis. The IVC and urinary bladder are unremarkable. Impression: Negative examination of the kidneys
--- NOTE | 2017-03-11 14:10 | Diagnostic Imaging Report ---
APPROVED REPORT CPT Code: 49541 Present Symptoms Lower Extremity Pain: Bilateral BILATERAL: Imaging reveals a patent deep venous system bilaterally. There is no evidence of thrombus within the femoral, popliteal or tibial segments. The greater saphenous veins are also within normal limits. Doppler indicates normal spontaneous flow within these segments.
== END 2017-03-10 14:00 | disposition home or self-care (01) | DRG 189 ==
LOC: EDBD 21:34 → EMR 22:00 → 2W 03-09 00:34 → EDBEDREQ 03-09 02:27
PROC: 5A0935Z Assistance with Respiratory Ventilation, Less than 24 Consecutive Hours (ICD-10-PCS; principal; 2017-03-09)
DX: J96.01 Acute respiratory failure with hypoxia (principal); N17.9 Acute kidney failure, unspecified; E87.2 Acidosis; J44.1 Chronic obstructive pulmonary disease with (acute) exacerbation; I16.0 Hypertensive urgency; I12.9 Hypertensive chronic kidney disease with stage 1 through stage 4 chronic kidney disease, or unspecified chronic kidney disease; N18.9 Chronic kidney disease, unspecified; Z95.0 Presence of cardiac pacemaker; Z87.891 Personal history of nicotine dependence; R00.0 Tachycardia, unspecified; E83.42 Hypomagnesemia
CPT/HCPCS: 36415; 36600; 71010; 76700; 76775; 80048; 80053; 80300; 81003; 82550; 82553; 82803; 83605; 83735; 83880; 84100; 84484; 85007; 85025; 86705; 86709; 86803; 87040; 87070; 87205; 87340; 93005; 93306; 93970; 94640; 94660; 94664